=== PATIENT | female | born 1990 | race Caucasian/White ===

== ENCOUNTER 2025-01-12 06:00 | Day surgery (SDC) | payer OTHER ==
[2025-01-05 11:07] LABS: BASO % 1.3 % (0.1-1.2); EOS # 0.17 (0.04-0.54); EOS % 3.7 % (0.7-7.0); LYMPH # 1.78 (1.18-3.74); LYMPH % 38.9 % (19.3-53.1); MEAN PLATELET VOLUME 9.80 fl (9.4-12.4); MONO # 0.30 (0.24-0.82); MONO % 6.6 % (4.7-12.5); NEUT # 2.26 (1.56-6.13); NEUT % 49.3 % (34.0-71.1); RED CELL DISTRIBUTION WIDTH 11.4 % (11.6-14.4)
[2025-01-05 11:55] LABS: INR 1.05
[2025-01-05 12:24] LABS: ALT/SGPT 32.0 U/L (12-78); AST/SGOT 22.0 U/L (15-37); BILIRUBIN TOTAL 0.97 mg/dL (0.3-1.2); BUN CREA RATIO 24.0 (7.0-25.0); CREATININE SERUM 0.79 mg/dL (0.55-1.02); GFR 82.82; GLOBULINA 2.7 G/DL (2.4-3.5); GLUCOSE FASTING 83.0 mg/dL (65-100); OSMOLALITY SERUM 283.0 MOSM/KG (275-295)
[~2025-01-12 06:00] MED LIST: TOPAMAX50 MG PO; TRAZODONE HCL50 MG PO
[2025-01-12] MEDS ORDERED: POVIDONE-IODINE 118 ML BOTT TOP ONE (07:31)
[2025-01-12] MEDS ORDERED: SUGAMMADEX SODIUM 200 MG/2 ML VIAL IV ONE (08:36)
[2025-01-12] MEDS ORDERED: PROMETHAZINE HCL 50 MG/ML AMPUL IM ONE (09:00)
== END 2025-01-12 10:50 | disposition home or self-care (01) ==
LOC: CIR.AMB 06:00
PROVIDERS: ATTEND Obstetrics & Gynecology
DX: R10.20 Pelvic and perineal pain unspecified side (principal)